=== PATIENT | female | born 1970 | race Caucasian/White ===

== ENCOUNTER → 2017-01-23 | Outpatient (CLI) | payer OTHER | LOC: MC.RAD 08:40 | DX: Z12.31 Encounter for screening mammogram for malignant neoplasm of breast (principal) ==

== ENCOUNTER → 2018-03-08 | Outpatient (CLI) | payer BC | LOC: MC.RAD 11:40 | DX: Z12.31 Encounter for screening mammogram for malignant neoplasm of breast (principal) ==

== ENCOUNTER → 2019-05-31 | Outpatient (CLI) | payer BC | LOC: MC.RAD 07:14 | DX: Z12.31 Encounter for screening mammogram for malignant neoplasm of breast (principal) ==

== ENCOUNTER 2020-03-28 15:51 | Emergency (ER) | payer BC ==
[~2020-03-28] VITALS: Ht 170.2 cm; Wt 75.0 kg
[2020-03-28 15:55] VITALS: TEMP 97.4
[2020-03-28 16:06] LABS: COLLECTION METHOD CLEAN CATCH
[2020-03-28] MEDS ORDERED: ALLEGRA 60MG TA60 MG PO (16:12)
[2020-03-28] MEDS ORDERED: FLONASEALLERGY NS (16:12)
[2020-03-28] MEDS ORDERED: BISTOLIC (16:13)
[2020-03-28 16:15] LABS: MUCOUS Present /lpf; PH 5 (5-8); URINE APPEARANCE Hazy; URINE BACTERIA None Seen /hpf; URINE BILIRUBIN Negative (NEGATIVE); URINE BLOOD 2+ (NEGATIVE); URINE COLOR Yellow; URINE GLUCOSE Negative (NEGATIVE); URINE KETONE 1+ (NEGATIVE); URINE LEUKOCYTE ESTERASE Trace (NEGATIVE); URINE NITRATE Negative (NEGATIVE); URINE PROTEIN(semi-quant) 1+ (NEGATIVE); URINE RBC >50 /hpf
[2020-03-28 16:16] VITALS: BP 127/68
[2020-03-28 16:20] LABS: BASO % 0.2 % (0.0-2.0); EOS % 0.2 % (0-4.0); GRAN # 8.1 (1.4-6.5); GRAN % 81.5 % (42.2-75.2); LYMPH # 1.2 (1.2-3.4); LYMPH % 12.6 % (20.0-51.0); MEAN CELL VOLUME 85 fl (80.0-100.0); MEAN CORPUSCULAR HEMOGLOBIN 29 pg (27.0-31.0); MEAN CORPUSCULAR HGB CONC 34 g/dl (33.0-37.0); MEAN PLATELET VOLUME 10.4 fl (7.4-10.4); MONO # 0.5 (0.1-0.6); MONO % 5.2 % (1.7-9.3); PLATELET COUNT 149 K/mm3 (130-400); REDCELL DISTRIBUTION WIDTH-CV 12.1 % (11.5-14.5)
[2020-03-28 16:34] LABS: ALANINE AMINOTRANSFERASE 19 U/L (4-34); ALBUMIN 4.9 gm/dL (3.5-5.0); ALKALINE PHOSPHATASE 60 U/L (50-136); ANION GAP 11 mmol/L (7-16); AST,SGOT 25 U/L (15-37); BILIRUBIN,TOTAL 0.6 mg/dL (0.0-1.0); BLOOD UREA NITROGEN 19 mg/dL (7-17); CALCIUM 9.2 mg/dL (8.4-10.2); CARBON DIOXIDE 25 mmol/L (22-30); CHLORIDE 100 mmol/L (98-107); CREATININE, serum 1.13 (0.52-1.25); GLUCOSE 120 mg/dL (74-106); SODIUM 137 mmol/L (137-145)
[2020-03-28 16:37] LABS: C-REACTIVE PROTEIN < 0.5 mg/dL (0.0-0.9)
[2020-03-28] MEDS ORDERED: NORCO 325 MG-51 TAB PO (17:18)
[2020-03-28 17:28] VITALS: PULSE 84
== END 2020-03-28 17:26 | disposition home or self-care (01) ==
LOC: COL.ER 15:51
PROVIDERS: Physician Assistant
DX: R10.9 Unspecified abdominal pain (principal); R31.9 Hematuria, unspecified; Z86.79 Personal history of other diseases of the circulatory system; Z32.02 Encounter for pregnancy test, result negative; Z79.899 Other long term (current) drug therapy; Z79.83 Long term (current) use of bisphosphonates
CPT/HCPCS: J1885; J2405; J7030

== ENCOUNTER → 2021-02-16 | Outpatient (CLI) | payer BC ==
[~2021-02-16] MED LIST: ALLEGRA 60MG TA60 MG PO; BISTOLIC; FLONASEALLERGY NS; NORCO 325 MG-51 TAB PO
== END ==
LOC: MC.RAD 16:30
DX: Z12.31 Encounter for screening mammogram for malignant neoplasm of breast (principal)

== ENCOUNTER → 2023-11-21 | Outpatient (CLI) | payer BC | LOC: MC.RAD 14:00 | DX: Z12.31 Encounter for screening mammogram for malignant neoplasm of breast (principal) ==

== ENCOUNTER → 2024-05-15 | Outpatient (CLI) | payer BC, OTHER | LOC: COL.RAD 06:56 | DX: I65.23 Occlusion and stenosis of bilateral carotid arteries (principal) ==